=== PATIENT | female | born 1975 | race Caucasian/White ===

== ENCOUNTER 2017-03-01 09:34 | Inpatient (IN) | payer OTHER ==
--- NOTE | ~2017-03-01 | OP ---
Record Of Operation [facility] [address] [place]. [address] NAME: GENET GARZA : 77 STATUS : ADM IN PAT#: [id number] AGE: 41 ADM/REG DATE : 03/01/17 MR#: [id number] REPORT SERV DATE: 03/01/17 DICTATED BY: ADE POWERS DATE: 03/01/17 REPORT STATUS : Draft TRANSCRIBED BY: MODL DATE: 03/01/17 DATE OF PROCEDURE: 03/01/2017 PREOPERATIVE DIAGNOSES: 1. Left ureteral stone. 2. Fever with tachycardia. POSTOPERATIVE DIAGNOSES: 1. Left ureteral stone. 2. Fever with tachycardia. PROCEDURE PERFORMED: Cystoscopy with left retrograde pyelogram and left ureteral stent placement. SURGEON: Ade Powers M.D. ANESTHESIA: General. COMPLICATIONS: None. DRAINS: Guidry catheter, left double-J ureteral stent. SPECIMENS: Left kidney, urine for Gram stain and culture. INDICATION: Ms Garza is a 41-year-old with history of liver transplant and kidney stones. She had acute onset of left flank pain last night. CT scan in the emergency room shows a 9 mm left UPJ stone with hydro. Voided urine shows positive for nitrites and leukocytes. She received Rocephin in the ER at approximately noon. I saw her at 1330 hours. She was febrile to 102.9 and tachycardic at 140. She was brought to the operating room urgently for left ureter stent placement. TECHNIQUE: Informed was obtained. Ms Garza was brought to the operating room. She had already received Rocephin. General endotracheal anesthesia was administered. The introitus was prepped and draped in the lithotomy position. Rigid cystoscopy was performed. The urethra was normal. The bladder was mildly distended but otherwise unremarkable. Clear efflux on the right. No efflux on the left. A 0.038 angled Glidewire was passed up to the left kidney. There was a faintly calcified stone at the expected site of the UPJ. Once the wire was passed beyond the kidney, I passed a Pollack catheter up into the left renal pelvis. Urine was aspirated and sent for culture. It was turbid but not grossly purulent. Retrograde pyelogram was performed. There was moderate to severe left hydronephrosis. The stone was faintly calcified and appeared to be at the UPJ or renal pelvis. The wire was replaced. Under fluoroscopic guidance, I placed a 6-Iranian, 26 cm left double-J ureteral stent. The dangling string was removed. I placed a Guidry catheter to maximally divert urine. She was taken to recovery room in a stable condition. Her heart rate was 120 at the end of the case. Her stone be treated via ureteroscopy once infection has cleared. Record Of Operation [address] [place]. [address] NAME: GENET GARZA : 77 STATUS : ADM IN PAT#: [id number] AGE: 41 ADM/REG DATE : 03/01/17 MR#: [id number] REPORT SERV DATE: 03/01/17 DICTATED BY: ADE POWERS DATE: 03/01/17 REPORT STATUS : Draft TRANSCRIBED BY: TRU DATE: 03/01/17 [facility]/TRU Ade Powers M.D. / [id number] CC: Esthela Arce SONJA B.
--- NOTE | ~2017-03-01 | HP ---
History And Physical [place] [id number] [facility] [place]. [address] NAME: GENET GARZA : 77 STATUS : ADM IN [facility]#: [id number] AGE: 41 ADM/REG DATE : 03/01/17 MR#: [id number] REPORT SERV DATE: 03/01/17 DICTATED BY: ADE POWERS DATE: 03/01/17 REPORT STATUS : Draft TRANSCRIBED BY: MODL DATE: 03/01/17 DATE OF ADMISSION: 03/01/2017 CHIEF COMPLAINT: Left flank pain. HISTORY OF PRESENT ILLNESS: Ms. Garza is a 41-year-old with history of orthotopic liver transplant and kidney stones. She is awakened from sleep with severe left flank pain. She has not recently had any UTIs. Her liver transposed two years ago and had not had any problems with stones since then. In the emergency room, CT scan was checked as well as basic lab work. Her creatinine was mildly elevated from her baseline. Voided urine was positive for nitrites and leukocytes as well as blood. CT scan showed obstructing 9 mm left UPJ stone. She spiked a fever of 102.9 in the emergency room and was tachycardic, this was at approximately 0130 the day of admission. PAST MEDICAL HISTORY: Liver failure, status post orthotopic liver transplant in [place]; kidney stones. FAMILY HISTORY: Hypertension. SOCIAL HISTORY: She quit drinking a little over two years ago. No illicit drugs. No tobacco. . MEDICATIONS: Ursodiol, Mag-Ox, Neurontin, Prograf. Rocephin was given in the ER. ALLERGIES: LEVAQUIN (NOSEBLEED, TENDINITIS, QUESTION EXACERBATION OF LIVER FAILURE). REVIEW OF SYSTEMS: Positive for left flank pain and chills. Her fever developed in the ER. She has not seen a stone pass. PHYSICAL EXAMINATION: VITAL SIGNS: Blood pressure 111/68; pulse 135-141; temperature 102.9, it had been 98.6 upon presentation to the ER; respirations 16. GENERAL: Pleasant 41-year-old, in no acute distress. HEENT: Sclerae anicteric. Oropharynx clear. HEART: Tachycardic. CHEST: Clear anteriorly. ABDOMEN: Soft, protuberant. No palpable mass. No rebound or guarding. A well-healed chevron incision. Moderate left CVA tenderness. PELVIC: Exam is deferred to the operating room. EXTREMITIES: No lower extremity edema. NEURO: She is oriented to person, place, time, and situation. LABS: Urinalysis positive for large leukocytes, positive nitrites, and strangely negative for blood. Bacteria are present. Creatinine 1.17 (baseline 0.6). White blood cell count 10.2, platelets normal, hematocrit 36. test negative. History And Physical [address] [address] NAME: GENET GARZA : 77 STATUS : ADM IN PAT#: [id number] AGE: 41 ADM/REG DATE : 03/01/17 MR#: [id number] REPORT SERV DATE: 03/01/17 DICTATED BY: ADE POWERS DATE: 03/01/17 REPORT STATUS : Draft TRANSCRIBED BY: TRU DATE: 03/01/17 IMAGING: CT scan of the abdomen without IV contrast shows obstructing 9 mm left UPJ stone. Smaller stones were present in the calices bilaterally. IMPRESSION: 1. Left UPJ stone, obstructing. 2. Fever or tachycardia likely representing sepsis from a urinary source. PLAN: 1. Rocephin has been given and blood cultures obtained. 2. Proceed to the operating room for urgent left ureteral stent placement. 3. I will consult Hospitalist Service to assist with management of her medical comorbidities. 4. The patient has to understand that the ureteral stent is a temporizing measure necessary to clear infection. She will need ureteroscopy or ESWL once infection has been adequately treated with stenting and antibiotics. [facility]/TRU Ade Powers M.D. / [id number] CC: Esthela Arce SONJA B
--- NOTE | ~2017-03-01 | DS ---
Discharge Summary [facility] [address] [place]. [address] NAME: GENET SHORT : 77 STATUS : DIS IN PAT#: [id number] AGE: 41 ADM/REG DATE : 03/01/17 MR#: [id number] REPORT SERV DATE: 03/11/17 DICTATED BY: ADE POWERS DATE: 03/10/17 REPORT STATUS : Draft TRANSCRIBED BY: TRU DATE: 03/10/17 Data Collection from hospitalization DISCHARGE DIAGNOSES: 1. Left ureteral stone. 2. Fever with tachycardia. 3. Status post orthotopic liver transplant. 4. Pyelonephritis. 5. Severe sepsis present on arrival. 6. Left renal stone. 7. Hypothyroidism. 8. Acute kidney injury. CONSULTATIONS: Dr. Jayy Churchill. PROCEDURES: 1. Cystoscopy with left retrograde pyelogram and left ureteral stent placement, 03/01/2017. 2. CT of the abdomen and pelvis without contrast, 03/01/2017. MEDICATIONS: Rocephin 2 g IV daily through 03/15/2017, Benadryl 25 mg at bedtime, Flonase one spray each nostril daily, Neurontin 300 mg three times a day, levothyroxine sodium 25 mcg before breakfast, Mag-Ox 400 mg three times daily, Singulair 10 mg daily, Prograf 0.5 mg at bedtime, multivitamin one daily, Super B complex with C one daily, fish oil 1000 mg daily, Ditropan XL 5 mg daily, Protonix 40 mg daily, Klor-Con 20 mEq twice daily, Prograf 1 mg every morning, Actigall 300 mg twice daily, flaxseed 1000 mg daily, melatonin 10 mg at bedtime, Percocet 7.5/325 one or two every 4 hours as needed, Dilaudid 2 mg every four hours as needed for breakthrough pain. B and O suppository rectally every 8 hours as needed for spasms not relieved by Ditropan. CONDITION AT DISCHARGE: Upon discharge, she did appear to be doing well and had no complaints. Her pain was noted to be slowly improving. DISPOSITION: She had been discharged home to continue a regular diet with activity as tolerated. She was to follow up with Dr. Flo Eisenberg on 03/18/2017. Follow up for PICC line dressing changes weekly as directed. HOSPITAL COURSE: This 41-year-old female had a history of orthotopic liver transplant and kidney stones. She was awakened from sleep with severe left flank pain. She had not recently had any UTIs. Her liver transposed two years ago and had not had any problems with stones since then. In the emergency room, CT scan was checked as well as basic lab work. Her creatinine was mildly elevated from her baseline. Voided urine was positive for nitrites and leukocytes as well as blood. CT scan showed obstructing 9 mm left UPJ stone. She spiked a fever 102.9 in the emergency room and was tachycardiac, this was at approximately 0130 on the day of admission. She was admitted for further evaluation and treatment. Upon admission to the hospital, she had been placed on n.p.o. diet. She was begun on Dilaudid at 0.5 to 1 mg IV every 4 hours as needed for pain, Zofran 4 mg IV every 8 hours as needed for nausea. She had been placed on IV fluids with normal saline at [address] [address] NAME: GENET SHORT : 77 STATUS : DIS IN PAT#: [id number] AGE: 41 ADM/REG DATE : 03/01/17 MR#: [id number] REPORT SERV DATE: 03/11/17 DICTATED BY: ADE POWERS DATE: 03/10/17 REPORT STATUS : Draft TRANSCRIBED BY: TRU DATE: 03/10/17 mL/hour. She did undergo blood cultures while in the emergency room. She had been placed on Pyridium 100 mg three times a day, and was also begun on Rocephin 1 g IV daily as well as vancomycin 1 g IV. She did undergo the above CT scan while in the emergency room. Following admission, she did undergo the above cystoscopy. She had tolerated this well and was transferred to the recovery room. She had also been seen on the day of admission by Dr. Churchill for medical management. He had increased the Rocephin to 2 g/kg if greater than 99.25, her symptoms were noted to have improved postsurgical. Following the day of admission, she was noted to be feeling better. She was afebrile, and her vital signs were stable. Her WBCs were up to 17.5 from 10.2. Her blood culture was noted to have been positive. She was continued on Rocephin. Her creatinine was back to 0.95 from 1.17, WBCs 17.5. Her LFTs were normal. On 03/03/2017, she continued to do well, and her Prograf was noted to be normal as well. Her acute kidney injury was felt to be slowly improving. She was continued on IV antibiotics. Her urine culture revealed a growth of Escherichia coli. She had been continued on supportive care. On 03/04/2017, she was noted to have had bladder spasms after the Guidry catheter had been removed and this had been helped with suppositories. She did still have left flank pain with movement. Her temperature was at 99 and her vital signs had remained stable. She did continue to slowly improve. She did undergo PICC line placement, and as she continued to do well, she was then discharged home with home health care for continued antibiotic management. Information collected by: Jaylin CorcoranH.I.T. I submit the above information as my discharge summary. JESÚS/TRU Ade Powers M.D. / [id number] CC: Esthela Arce MD
--- NOTE | ~2017-03-01 | CN ---
Consultation Report [facility] [address] [place]. [address] NAME: GENET SHORT : 77 STATUS : ADM IN PAT#: [id number] AGE: 41 ADM/REG DATE : 03/01/17 MR#: [id number] REPORT SERV DATE: 03/04/17 DICTATED BY: NAKUL JOEL DATE: 03/01/17 REPORT STATUS : Draft TRANSCRIBED BY: TRU DATE: 03/01/17 DATE OF CONSULTATION: CHIEF COMPLAINT: Left flank pain, nausea. REASON FOR CONSULTATION: Possible sepsis. 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 Does also have history of renal stones followed by Dr. Eisenberg, who comes in with acute left flank pain, nausea, and upon evaluation in the emergency room, became rapidly tachycardic, tachypneic, and febrile up to fever of 102. Pain was quite severe, constant, unrelenting with nausea symptoms. No vomiting, palpitations. No chest pains. No wheezing, discomfort, fever. No diarrhea or shortness of breath, but did have chills. Pain was severe, radiating to back, tender to palpation. Currently, symptoms have been quite improved with pain medications and after postprocedure. The patient was taken to the OR after being seen in the emergency room. The patient does report that she has had history of kidney stones for over 10 years, but never had it to this extent. REVIEW OF SYSTEMS: For additional 10-point review of systems negative except for that noted in the HPI. PAST MEDICAL HISTORY: Kidney stones, liver cirrhosis with subsequent liver transplant, on Prograf, followed by Dr. Lopez in [place] and Dr. Coleman in [facility]. ADDITIONAL SURGICAL HISTORY: The patient has had liver transplant. SOCIAL HISTORY: No current smoking. Prior smoker. Prior alcohol, but none since transplant. No illicits. Accompanied by . Has had one child, natural childbirth at age 13. ALLERGIES: LEVAQUIN. HOME MEDICATIONS: B12 complex, Benadryl, flaxseed, Flonase, Neurontin, levothyroxine, Mag oxide, melatonin, Singulair, multivitamin, fish oil, Protonix, Klor-Con, Prograf, and Ursodiol. PHYSICAL EXAMINATION: VITAL SIGNS: Initial blood pressure 124/68, temperature 98.6, pulse initially 103, temperature 98, respirations 20, as high as 22. Pulse had been as high as 140 preop. Fever as high as 102.9 preop, postop 99.3. GENERAL: No acute distress now, calm, pleasant. Consultation Report [place] [id number] [place]. [address] NAME: GENET SHORT : 77 STATUS : ADM IN [facility]#: [id number] AGE: 41 ADM/REG DATE : 03/01/17 MR#: [id number] REPORT SERV DATE: 03/04/17 DICTATED BY: NAKUL JOEL DATE: 03/01/17 REPORT STATUS : Draft TRANSCRIBED BY: TRU DATE: 03/01/17 EYES: No scleral icterus. EOMI. ENT: Nares patent. Tongue midline. Moist mucous membranes. RESPIRATORY: Clear to auscultation bilaterally. No wheezes, rales. CV: Regular rate. No rubs. No pedal edema. GI: Soft, nontender. Old surgical scar. : Guidry. RESPIRATORY: Clear to auscultation. No wheezes, rales. CHEST: Equal chest expansion. MUSCULOSKELETAL: Moves all extremities x4. Skin: Warm, dry. HEME: No bleeding or bruising. NEURO: Alert and oriented. No asterixis. PSYCH: Appropriate mood and affect. Pleasant. LABORATORY DATA: Urinalysis, large leukocyte esterase and nitrites with 156 wcb's, few bacteria with 30 protein. CMP: Creatinine 1.17, previously 0.61. Glucose 108. LFTs within normal limits. Lipase 158. Bilirubin 1.0. Potassium 4.2, sodium 138. CBC: WBC count 10.2, H and H 12.8 and 36.5, with MCV of 96.8. test negative. ASSESSMENT: 1. Pyelonephritis. 2. Severe sepsis, present on arrival. 3. Left renal stone. 4. Hypothyroidism. 5. Liver transplant history. 6. Acute kidney injury. PLAN: 1. For pyelonephritis, increase IV antibiotics to Rocephin 2 g for kilograms if greater than 99.25 and BMI of 32.9, status post stent, does have stone, awaiting for passage. 2. Severe sepsis, present on arrival. Symptoms improved postsurgical. I agree with antibiotic choice of Rocephin, increase it to 2 g. Prior E coli, pansensitive. Does have acute kidney injury with mild elevation in creatinine from 0.6 to 1.17. We will check lactates. Has received IV fluids, IV antibiotics in the emergency room. 3. Left renal stone, pH 7.0, chronic history, unclear type of stone. 4. Hypothyroidism, on replacement. 5. Liver transplant history. Check Prograf level. Appears to be doing well. No elevation of LFTs. 6. EDGAR, IV fluids, status post stent, monitor as the patient did have severe hydro secondary to likely stone. EDGAR, probably secondary to stone, less likely from full sepsis component. Thank you Dr. Matthews for allowing us to assist in the care of this patient. We will continue to monitor. Consultation Report [place] [id number] [facility] [place]. [address] NAME: GENET SHORT : 77 STATUS : ADM IN [facility]#: [id number] AGE: 41 ADM/REG DATE : 03/01/17 MR#: [id number] REPORT SERV DATE: 03/04/17 DICTATED BY: NAKUL JOEL DATE: 03/01/17 REPORT STATUS : Draft TRANSCRIBED BY: MODL DATE: 03/01/17 [facility]/TRU Nakul Joel MD / [id number] CC: Esthela Arce SONJA B Nosratollah Nezakatgoo, MD
[~2017-03-01 09:34] MED LIST: ACT300 PO; B COMPLETE PO; BEN25 PO; CHLORASEPTIC1.4 % MT; FLONASE NAS; FOLIC PO; L40 PO; LACT30UDL PO; MAGOX4 PO; MEPHYTON 5 MG TA5 MG PO; MUCINEX D1 TA1 PO; MULTIVIT/MIN PO; NEUR300 PO; P20 PO; POT GLUCONAT595 M1 PO; PROAIR HFA INH; PROTONIX PO; PROTONIX20 MG PO; QUESLITE PO; SPIRO50 PO; TRENTAL400 PO; TYLENOL PM PO; ULTRAM50 PO; VANC125UDL PO; VITAMIN B-121000 MC1 SL; VITAMIN B-122500 MCG SL; VITC500 PO; ZOFRAN4 PO; ZYRTEC ALLGY10 MG PO
[2017-03-01 10:10] LABS: BASOPHILS 0.2 %; BASOPHILS ABSOLUTE 0.02 10/3/uL (0.0-0.16); EOSINOPHILS 1.7 %; EOSINOPHILS ABSOLUTE 0.17 10/3/uL (0.0-0.53); IMMATURE GRANULOCYTES 0.2 %; IMMATURE GRANULOCYTES ABSOLUTE 0.02 10/3/uL (0.0-0.11); LYMPHOCYTES ABSOLUTE 0.81 10/3/uL (0.67-4.30); MEAN PLATELET VOLUME 9.1 fL (9.2-13.0); MONOCYTES 8.6 %; MONOCYTES ABSOLUTE 0.87 10/3/uL (0.21-1.20); NEUTROPHILS 81.3 %; NEUTROPHILS ABSOLUTE 8.28 10/3/uL (2.02-8.40); WHITE BLOOD CELLS 10.2 10/3/uL (4.5-10.5)
[2017-03-01 10:21] LABS: HEMATOCRIT 36.5 % (36.0-48.0); HEMOGLOBIN 12.8 g/dL (12.0-16.0); MANUAL DIFF NO %; MEAN CORPUS HGB CONC 35.1 g/dL (32.0-36.0); MEAN CORPUSCULAR VOLUME 96.8 fL (80-100); PLATELET COUNT 141 10/3/uL (150-400); RBC DISTRIBUTION WIDTH 14.8 % (12.0-16.0); RED CELL COUNT 3.77 10/6/uL (4.0-5.6)
[2017-03-01 10:25] LABS: CO2 (CARBON DIOXIDE) 27 MMOL/L (24-34); POTASSIUM, SERUM 4.2 MMOL/L (3.5-5.3); SGOT(AST) 31 U/L (5-40); SGPT(ALT) 40 U/L (5-65)
[2017-03-01 10:27] LABS: A/G RATIO 1.1 (0.7-1.9); ALBUMIN 3.6 G/DL (3.5-5.0); ALKALINE PHOSPHATASE 73 U/L (45-117); BUN (BLOOD UREA NITROGEN) 20 MG/DL (6-23); CALCIUM, SERUM 8.8 MG/DL (8.5-10.4); CHLORIDE, SERUM 104 MMOL/L (96-112); CREATININE 1.17 MG/DL (0.55-1.02); GFR AFRICAN AMERICAN 68 ML/MIN (>=60); GFR NON AFRICAN AMERICAN 58 ML/MIN (>=60); GLOBULIN 3.4 G/DL (2.5-4.1); GLUCOSE, SERUM 108 MG/DL (60-99); SODIUM, SERUM 137 MMOL/L (135-148)
[2017-03-01 10:31] LABS: ASCORBIC ACID (UR NOT ORDER) 20 (NEG); BILIRUBIN, URINE NEGATIVE (NEG); ER URINALYSIS TAT 0 Hrs 09 Mins; KETONE, URINE NEGATIVE (NEG); LEUKOCYTE ESTERASE(NOT OR LARGE (NEG); NITRITE (URINE) POS (NEG); WBC (NOT ORDERED) (RFLEX) 156 (0-5)
[2017-03-01] MEDS ORDERED: PROGRAF1 PO (11:33)
[2017-03-01] MEDS ORDERED: MAGOX4 PO (11:33)
[2017-03-01] MEDS ORDERED: PROGRAF0.5 PO (11:33)
[2017-03-01] MEDS ORDERED: KLOR-CON M2020 MEQ PO (11:33)
[2017-03-01] MEDS ORDERED: BL FLAX SEED1000 MG PO (11:34)
[2017-03-01] MEDS ORDERED: LEVOTHYROXIN25 MCG PO (11:34)
[2017-03-01] MEDS ORDERED: ACT300 PO (11:34)
[2017-03-01] MEDS ORDERED: PROTONIX PO (11:34)
[2017-03-01] MEDS ORDERED: FLONASE NAS (11:35)
[2017-03-01] MEDS ORDERED: FISH-EPA1000 MG PO (11:35)
[2017-03-01] MEDS ORDERED: SUPER B COMP PO (11:35)
[2017-03-01] MEDS ORDERED: NEUR300 PO (11:35)
[2017-03-01] MEDS ORDERED: MULTIVITAMI1 PO (11:35)
[2017-03-01] MEDS ORDERED: BEN25 PO (11:36)
[2017-03-01] MEDS ORDERED: MELATONIN5 M1 PO (11:36)
[2017-03-01] MEDS ORDERED: SINGULAIR1 PO (11:36)
[2017-03-02 02:21] LABS: LACTATE 2.2 MMOL/L (0.3-2.4)
[2017-03-02 04:58] LABS: BASOPHILS 0.1 %; BASOPHILS ABSOLUTE 0.01 10/3/uL (0.0-0.16); EOSINOPHILS 0 %; HEMATOCRIT 33.9 % (36.0-48.0); HEMOGLOBIN 11.7 g/dL (12.0-16.0); IMMATURE GRANULOCYTES 0.3 %; IMMATURE GRANULOCYTES ABSOLUTE 0.05 10/3/uL (0.0-0.11); LYMPHOCYTES 3.5 %; LYMPHOCYTES ABSOLUTE 0.62 10/3/uL (0.67-4.30); MEAN CORPUS HGB CONC 34.5 g/dL (32.0-36.0); MEAN CORPUSCULAR HEMOGLOB 34.1 pg (26.0-34.0); MEAN CORPUSCULAR VOLUME 98.8 fL (80-100); MEAN PLATELET VOLUME 9.3 fL (9.2-13.0); MONOCYTES 7.8 %; MONOCYTES ABSOLUTE 1.37 10/3/uL (0.21-1.20); NEUTROPHILS 88.3 %; NEUTROPHILS ABSOLUTE 15.45 10/3/uL (2.02-8.40); PLATELET COUNT 141 10/3/uL (150-400); RBC DISTRIBUTION WIDTH 15.1 % (12.0-16.0); RED CELL COUNT 3.43 10/6/uL (4.0-5.6)
[2017-03-02 04:59] LABS: MANUAL DIFF NO %; WHITE BLOOD CELLS 17.5 10/3/uL (4.5-10.5)
[2017-03-02 05:10] LABS: CHLORIDE, SERUM 108 MMOL/L (96-112); CO2 (CARBON DIOXIDE) 25 MMOL/L (24-34); CREATININE 0.95 MG/DL (0.55-1.02); GFR AFRICAN AMERICAN 87 ML/MIN (>=60); GFR NON AFRICAN AMERICAN 75 ML/MIN (>=60); POTASSIUM, SERUM 4.3 MMOL/L (3.5-5.3); SODIUM, SERUM 137 MMOL/L (135-148)
[2017-03-02 05:11] LABS: BUN (BLOOD UREA NITROGEN) 11 MG/DL (6-23); GLUCOSE, SERUM 167 MG/DL (60-99)
[2017-03-02 05:14] LABS: LACTATE 1.4 MMOL/L (0.3-2.4)
[2017-03-03 04:45] LABS: BASOPHILS 0.1 %; BASOPHILS ABSOLUTE 0.01 10/3/uL (0.0-0.16); EOSINOPHILS 1.3 %; EOSINOPHILS ABSOLUTE 0.12 10/3/uL (0.0-0.53); HEMATOCRIT 31.9 % (36.0-48.0); HEMOGLOBIN 10.7 g/dL (12.0-16.0); IMMATURE GRANULOCYTES 0.3 %; IMMATURE GRANULOCYTES ABSOLUTE 0.03 10/3/uL (0.0-0.11); LYMPHOCYTES 8.4 %; LYMPHOCYTES ABSOLUTE 0.78 10/3/uL (0.67-4.30); MEAN CORPUS HGB CONC 33.5 g/dL (32.0-36.0); MEAN CORPUSCULAR VOLUME 101.3 fL (80-100); MEAN PLATELET VOLUME 9.8 fL (9.2-13.0); MONOCYTES 8.9 %; MONOCYTES ABSOLUTE 0.82 10/3/uL (0.21-1.20); NEUTROPHILS ABSOLUTE 7.49 10/3/uL (2.02-8.40); PLATELET COUNT 132 10/3/uL (150-400); RBC DISTRIBUTION WIDTH 15.4 % (12.0-16.0); RED CELL COUNT 3.15 10/6/uL (4.0-5.6)
[2017-03-03 04:58] LABS: MANUAL DIFF NO %; WHITE BLOOD CELLS 9.3 10/3/uL (4.5-10.5)
[2017-03-03 05:14] LABS: BUN (BLOOD UREA NITROGEN) 11 MG/DL (6-23); CALCIUM, SERUM 8.1 MG/DL (8.5-10.4); CHLORIDE, SERUM 111 MMOL/L (96-112); CO2 (CARBON DIOXIDE) 25 MMOL/L (24-34); CREATININE 0.82 MG/DL (0.55-1.02); GFR AFRICAN AMERICAN 104 ML/MIN (>=60); GFR NON AFRICAN AMERICAN 90 ML/MIN (>=60); POTASSIUM, SERUM 4.2 MMOL/L (3.5-5.3); SGOT(AST) 24 U/L (5-40); SGPT(ALT) 36 U/L (5-65); SODIUM, SERUM 140 MMOL/L (135-148)
[2017-03-03 05:20] LABS: A/G RATIO 0.9 (0.7-1.9); ALBUMIN 2.8 G/DL (3.5-5.0); ALKALINE PHOSPHATASE 58 U/L (45-117); GLOBULIN 3.2 G/DL (2.5-4.1); GLUCOSE, SERUM 110 MG/DL (60-99); TOTAL BILIRUBIN 0.4 MG/DL (0-1.2)
[2017-03-04 05:11] LABS: BASOPHILS 0.3 %; BASOPHILS ABSOLUTE 0.02 10/3/uL (0.0-0.16); EOSINOPHILS 3.1 %; EOSINOPHILS ABSOLUTE 0.18 10/3/uL (0.0-0.53); HEMATOCRIT 32.5 % (36.0-48.0); IMMATURE GRANULOCYTES 0.3 %; IMMATURE GRANULOCYTES ABSOLUTE 0.02 10/3/uL (0.0-0.11); LYMPHOCYTES 23.6 %; LYMPHOCYTES ABSOLUTE 1.39 10/3/uL (0.67-4.30); MEAN CORPUS HGB CONC 33.8 g/dL (32.0-36.0); MEAN CORPUSCULAR HEMOGLOB 34.2 pg (26.0-34.0); MEAN CORPUSCULAR VOLUME 100.9 fL (80-100); MEAN PLATELET VOLUME 9.4 fL (9.2-13.0); MONOCYTES ABSOLUTE 0.71 10/3/uL (0.21-1.20); NEUTROPHILS 60.7 %; NEUTROPHILS ABSOLUTE 3.58 10/3/uL (2.02-8.40); PLATELET COUNT 156 10/3/uL (150-400); RED CELL COUNT 3.22 10/6/uL (4.0-5.6); WHITE BLOOD CELLS 5.9 10/3/uL (4.5-10.5)
[2017-03-04 05:13] LABS: MANUAL DIFF NO %
[2017-03-04 05:30] LABS: BUN (BLOOD UREA NITROGEN) 11 MG/DL (6-23); CALCIUM, SERUM 8.8 MG/DL (8.5-10.4); CHLORIDE, SERUM 107 MMOL/L (96-112); CO2 (CARBON DIOXIDE) 25 MMOL/L (24-34); GFR AFRICAN AMERICAN 107 ML/MIN (>=60); GFR NON AFRICAN AMERICAN 92 ML/MIN (>=60); GLUCOSE, SERUM 110 MG/DL (60-99); POTASSIUM, SERUM 3.7 MMOL/L (3.5-5.3); SODIUM, SERUM 138 MMOL/L (135-148)
[2017-03-04] MEDS ORDERED: [UNRECOGNIZED DRUG - OTHER] PR (16:12)
[2017-03-04] MEDS ORDERED: DITROXL5 PO (16:12)
[2017-03-04] MEDS ORDERED: PERCOCET 7.5/321 TAB PO (16:13)
[2017-03-04] MEDS ORDERED: DIL2TAB PO (16:14)
[2017-03-04] MEDS ORDERED: ROCEPHIN2 G2 IV (16:17)
[2017-03-24] MEDS ORDERED: PROGRAF1 PO (11:38)
[2017-03-24] MEDS ORDERED: LEXAPRO5 MG PO (11:40)
== END 2017-03-04 17:28 | disposition home or self-care (01) | DRG 872 ==
LOC: ER 09:34 → CDU1 12:23 → 4SO 13:24
PROVIDERS: Physician Assistant; Student in an Organized Health Care Education/Training Program; Urology
PROC: BT1F1ZZ Fluoroscopy of Left Kidney, Ureter and Bladder using Low Osmolar Contrast (ICD-10-PCS; principal; 2017-03-01 13:15)
PROC: 0T778DZ Dilation of Left Ureter with Intraluminal Device, Via Natural or Artificial Opening Endoscopic (ICD-10-PCS; principal; 2017-03-01 13:15)
PROC: 4A02X4A Measurement of Cardiac Electrical Activity, Guidance, External Approach (ICD-10-PCS; 2017-03-04)
PROC: 02HV33Z Insertion of Infusion Device into Superior Vena Cava, Percutaneous Approach (ICD-10-PCS; 2017-03-04)
DX: A41.51 Sepsis due to Escherichia coli [E. coli] (principal); N17.9 Acute kidney failure, unspecified; Z94.4 Liver transplant status; N13.6 Pyonephrosis; Z79.899 Other long term (current) drug therapy; Z88.1 Allergy status to other antibiotic agents; F10.21 Alcohol dependence, in remission; E03.9 Hypothyroidism, unspecified; Z87.891 Personal history of nicotine dependence; H54.62 Unqualified visual loss, left eye, normal vision right eye; N32.89 Other specified disorders of bladder
CPT/HCPCS: 36569; 71020; 74176; 74420; 80048; 80053; 80197; 81001; 83605; 83690; 83735; 84703; 85025; 87040; 87077; 87086; 87150; 87186; 96374; 96375; 99285; A9270-GY; C1751; C2617; J0330; J1170; J2250; J2405; J3010; J3370; J7507; Q9967